=== PATIENT | male | born 1955 | race Caucasian/White ===

== ENCOUNTER 2019-05-29 04:39 | Inpatient (IN) | payer MEDICARE ==
[~2019-05-29] VITALS: Ht 188 cm; Wt 118.4 kg
[~2019-05-29 04:39] MED LIST: ALBU18HF2 IH; AMLO10TA80 MT; BACL-141 MT; CLON2TAB11 MT; COLL30OI TP; FURO-151 MT; Klonopin; LISI40TA4 MT; METH-611 MT; OXYC-662 MT; TAMS-11 MT
[2019-05-29] MEDS ORDERED: OXYCODONE HCL/ACETAMINOPHEN 5/325MG TABLET PO ONE (06:45)
[2019-05-29 13:12] LABS: BASOPHILS % 0.7 % (0.0-2.0); EOSINOPHILS % 0.4 % (0.0-5.0); HEMATOCRIT. 39.3 % (42.0-52.0); HEMOGLOBIN. 13.2 g/dL (14.0-18.0); LYMPHOCYTES % 21.8 % (20.0-50.0); MEAN CORPUSCULAR HEMOGLOBIN 28.4 pg (28.0-32.0); MEAN CORPUSCULAR VOLUME 84.7 fL (80.0-94.0); MEAN PLATELET VOLUME 9.5 fl (7.4-10.4); MONOCYTES % 10.7 % (2.0-8.0); NEUTROPHILS % 66.4 % (40.0-76.0); PLATELET 170 x1000/uL (130-400); RED BLOOD CELL COUNT 4.63 mill/uL (4.7-6.1); RED CELL DISTRIBUTION WIDTH 16.5 % (11.6-14.6)
[2019-05-29 13:19] LABS: CHLORIDE 97 mEq/L (98-107)
[2019-05-29] MEDS ORDERED: HYDRALAZINE 20MG/ML VIAL IV ONE (14:15)
[2019-05-29] MEDS ORDERED: NA PHOS,M-B/NA PHOS,DI-BA ENEMA 118ML PR PRN (15:00)
[2019-05-29] MEDS ORDERED: GUAIFENESIN 200MG/10ML SUGAR FREE UDC PO PRN (15:00)
[2019-05-29] MEDS ORDERED: ACETAMINOPHEN 325MG TABLET PO PRN (15:00)
[2019-05-29] MEDS ORDERED: CLONIDINE 0.1MG TABLET PO PRN (15:00)
[2019-05-29] MEDS ORDERED: ONDANSETRON HCL 4MG/2ML INJ IV PRN (15:00)
[2019-05-29] MEDS ORDERED: DIPHENHYDRAMINE 50MG/ML VIAL IV PRN (15:00)
[2019-05-29] MEDS ORDERED: DOCUSATE SODIUM 100MG CAPSULE PO PRN (15:00)
[2019-05-29] MEDS ORDERED: ALBUTEROL 6.7GM HFA INHALER INH SCH (15:15)
[2019-05-29 16:00] VITALS: BP 170/100
[2019-05-29] MEDS: ENOXAPARIN 30MG/0.3ML SYR SUBCUT SCH (18:00)
[2019-05-29] MEDS: CLONAZEPAM 1MG TABLET PO PRN (18:02)
[2019-05-29] MEDS: FUROSEMIDE 40MG TABLET PO SCH (18:03)
[2019-05-29] MEDS: AMLODIPINE 10MG TABLET PO SCH (18:04)
[2019-05-29 18:20] VITALS: BP 170/100
[2019-05-29] MEDS: BACLOFEN 10MG TABLET PO SCH (18:31)
[2019-05-29] MEDS: LISINOPRIL 40MG TABLET PO SCH (18:31)
[2019-05-29] MEDS: METHADONE HCL 10MG TABLET PO SCH (18:45)
[2019-05-29] MEDS ORDERED: ALBUTEROL (0.083%) 2.5MG/3ML NEB HHN PRN (18:45)
[2019-05-29 20:00] VITALS: BP 131/72
[2019-05-29] MEDS ORDERED: POTASSIUM CHLORIDE 20MEQ TABLET SR PO NR (21:00)
[2019-05-29] MEDS: TAMSULOSIN HCL 0.4MG SR CAPSULE PO SCH (21:46)
[2019-05-30] VITALS: BP 124/79
[2019-05-30 01:06] LABS: CREATINE KINASE 68 IU/L (39-308)
[2019-05-30] MEDS: LORAZEPAM 2MG/ML CPJ IV PRN ×3 (04:49→22:40)
[2019-05-30 05:00] VITALS: BP 141/69
[2019-05-30] MEDS: ENOXAPARIN 30MG/0.3ML SYR SUBCUT SCH ×2 (05:07→18:58)
[2019-05-30 06:19] LABS: *AMPHETAMINES SCREEN URINE NEGATIVE (NEGATIVE); *BARBITURATES SCREEN URINE NEGATIVE (NEGATIVE); CANNABINOID URINE SCREEN NEGATIVE (NEGATIVE); METHADONE URINE SCREEN PRESUMTIVE POSITIVE (NEGATIVE); OPIATES URINE SCREEN NEGATIVE (NEGATIVE); PHENCYCLIDINE URINE SCREEN NEGATIVE (NEGATIVE)
[2019-05-30 06:20] LABS: *COCAINE SCREEN URINE NEGATIVE (NEGATIVE)
[2019-05-30 06:23] LABS: *BENZODIAZEPINES SCREEN URINE NEGATIVE (NEGATIVE)
[2019-05-30 06:48] LABS: CLARITY URINE CLEAR (CLEAR); COLOR URINE YELLOW (YELLOW); KETONES URINE NEGATIVE (NEGATIVE); LEUKOCYTE ESTERASE URINE NEGATIVE (NEGATIVE); NITRITE URINE NEGATIVE (NEGATIVE); OCCULT BLOOD URINE NEGATIVE (NEGATIVE); PH URINE 6.5 (4.5-8.0); PROTEIN URINE NEGATIVE (NEGATIVE); SPECIFIC GRAVITY URINE 1.006 (1.005-1.030)
[2019-05-30 06:53] LABS: BASOPHILS % 0.4 % (0.0-2.0); EOSINOPHILS % 0.4 % (0.0-5.0); HEMATOCRIT. 38.4 % (42.0-52.0); HEMOGLOBIN. 12.7 g/dL (14.0-18.0); LYMPHOCYTES % 16.8 % (20.0-50.0); MEAN CORPUSCULAR HEMOGLOBIN 28.3 pg (28.0-32.0); MEAN CORPUSCULAR VOLUME 85.6 fL (80.0-94.0); MEAN PLATELET VOLUME 9.7 fl (7.4-10.4); MONOCYTES % 7.9 % (2.0-8.0); NEUTROPHILS % 74.5 % (40.0-76.0); PLATELET 147 x1000/uL (130-400); RED BLOOD CELL COUNT 4.49 mill/uL (4.7-6.1); RED CELL DISTRIBUTION WIDTH 16.1 % (11.6-14.6)
[2019-05-30 07:50] LABS: CHLORIDE 100 mEq/L (98-107)
[2019-05-30] MEDS: CLONAZEPAM 1MG TABLET PO PRN ×2 (07:57→20:40)
[2019-05-30] MEDS: AMLODIPINE 10MG TABLET PO SCH ×2 (07:59→20:41)
[2019-05-30] MEDS: LISINOPRIL 40MG TABLET PO SCH (07:59)
[2019-05-30 08:00] VITALS: BP 155/95
[2019-05-30] MEDS: FUROSEMIDE 40MG TABLET PO SCH (08:00)
[2019-05-30] MEDS: OXYCODONE HCL 5MG TABLET PO PRN (08:00)
[2019-05-30 08:01] LABS: LDL CHOLESTEROL 110 mg/dL (5-100)
[2019-05-30 08:02] LABS: CREATINE KINASE 58 IU/L (39-308); HDL CHOLESTEROL 46 mg/dL (40-59)
[2019-05-30 08:03] LABS: T4 FREE 1.41 ng/dL (0.76-1.46)
[2019-05-30] MEDS ORDERED: POTASSIUM CHLORIDE 20MEQ/PACKET PO NR (08:30)
[2019-05-30] MEDS: METHADONE HCL 10MG TABLET PO SCH ×4 (09:00→17:52)
[2019-05-30] MEDS: BACLOFEN 10MG TABLET PO SCH ×3 (09:18→17:52)
[2019-05-30 12:00] VITALS: BP 102/72
[2019-05-30 16:00] VITALS: BP 138/58
[2019-05-30 20:00] VITALS: BP 105/76
[2019-05-30] MEDS: TAMSULOSIN HCL 0.4MG SR CAPSULE PO SCH (20:41)
[2019-05-31] VITALS: BP 102/72
[2019-05-31] MEDS: OXYCODONE HCL 5MG TABLET PO PRN (00:49)
[2019-05-31 04:00] VITALS: BP 150/84
[2019-05-31] MEDS: ENOXAPARIN 30MG/0.3ML SYR SUBCUT SCH (06:26)
[2019-05-31 08:00] VITALS: BP 147/87
[2019-05-31] MEDS: LORAZEPAM 2MG/ML CPJ IV PRN (08:06)
[2019-05-31] MEDS: CLONAZEPAM 1MG TABLET PO PRN (08:41)
[2019-05-31] MEDS: BACLOFEN 10MG TABLET PO SCH (09:00)
[2019-05-31] MEDS: FUROSEMIDE 40MG TABLET PO SCH (09:03)
[2019-05-31] MEDS: METHADONE HCL 10MG TABLET PO SCH ×2 (09:03→12:14)
[2019-05-31] MEDS: AMLODIPINE 10MG TABLET PO SCH (09:04)
[2019-05-31] MEDS: LISINOPRIL 40MG TABLET PO SCH (09:04)
[2019-05-31] MEDS ORDERED: LORAZEPAM 2MG/ML CPJ IV NR (11:45)
[2019-05-31 12:00] VITALS: BP 147/87
[2019-05-31 12:14] VITALS: BP 147/87
[2019-05-31] MEDS ORDERED: ATORVASTATIN CALCIUM 10MG TABLET PO SCH (21:00)
== END 2019-05-31 12:50 | disposition home health service (06) | DRG 556 ==
LOC: ER 04:39 → 8WST 13:35 → EDBEDREQ 13:37 → ENRESERV 14:28 → SUPCPDRO 14:55
PROVIDERS: ADMIT Hospitalist; ATTEND Hospitalist
DX: M79.674 Pain in right toe(s) (principal); G93.40 Encephalopathy, unspecified; G89.4 Chronic pain syndrome; F41.9 Anxiety disorder, unspecified; N40.0 Benign prostatic hyperplasia without lower urinary tract symptoms; F17.200 Nicotine dependence, unspecified, uncomplicated; F31.9 Bipolar disorder, unspecified; F11.10 Opioid abuse, uncomplicated; I10 Essential (primary) hypertension; Z79.899 Other long term (current) drug therapy; M79.18 Myalgia, other site
CPT/HCPCS: 36415; 71045; 73620; 80061; 80305; 81003; 82550; 84439; 84443; 93005; 93970; 97162; 99285; J1650; J2060

== ENCOUNTER 2019-06-24 06:21 | Emergency (ER) | payer MEDICARE ==
[~2019-06-24] VITALS: Ht 188 cm; Wt 125.0 kg
[2019-06-24] MEDS ORDERED: HYDROCODONE/ACETAMINOPHEN 5/325MG TABLET PO ONE (07:00)
[2019-06-24 12:13] VITALS: BP 170/95
== END 2019-06-24 12:15 | disposition home or self-care (01) ==
LOC: ER 06:21
DX: L98.491 Non-pressure chronic ulcer of skin of other sites limited to breakdown of skin (principal); F41.9 Anxiety disorder, unspecified; F32.9 Major depressive disorder, single episode, unspecified; I10 Essential (primary) hypertension; F17.200 Nicotine dependence, unspecified, uncomplicated
CPT/HCPCS: 73620; 99283

== ENCOUNTER 2021-02-11 14:31 | Emergency (ER) | payer MEDICARE ==
[~2021-02-11] VITALS: Ht 185.4 cm; Wt 86.0 kg
[~2021-02-11 14:31] MED LIST changes: +LISI40TA13 MT; -LISI40TA4 MT
[2021-02-11] MEDS ORDERED: SODIUM CHLORIDE 0.9% 1,000 ML IV ONE (17:00)
[2021-02-11 17:17] LABS: BASOPHILS % 0.7 % (0.0-2.0); EOSINOPHILS % 0.4 % (0.0-5.0); HEMATOCRIT. 39.8 % (42.0-52.0); HEMOGLOBIN. 13.5 g/dL (14.0-18.0); MEAN CORPUSCULAR HEMOGLOBIN 28.6 pg (28.0-32.0); MEAN CORPUSCULAR VOLUME 84.1 fL (80.0-94.0); MEAN PLATELET VOLUME 9.7 fl (7.4-10.4); NEUTROPHILS % 66.9 % (40.0-76.0); PLATELET 226 x1000/uL (130-400); RED BLOOD CELL COUNT 4.73 mill/uL (4.7-6.1); RED CELL DISTRIBUTION WIDTH 15.3 % (11.6-14.6)
[2021-02-11 17:26] LABS: CHLORIDE 103 mEq/L (98-107)
[2021-02-11] MEDS ORDERED: POTASSIUM CHLORIDE 20MEQ TABLET SR PO ONE (18:15)
[2021-02-11 19:14] VITALS: BP 135/88
== END 2021-02-11 19:17 | disposition home or self-care (01) ==
LOC: ER 14:31
DX: R53.1 Weakness (principal); E87.6 Hypokalemia; I10 Essential (primary) hypertension; Z79.899 Other long term (current) drug therapy
CPT/HCPCS: 36415; 70450; 71045; 80053; 84484; 85025; 93005; 99284; J7030

== ENCOUNTER 2021-05-09 09:07 | Inpatient (IN) | payer MEDICARE, OTHER ==
[~2021-05-09] VITALS: Ht 185.4 cm; Wt 97.2 kg
[2021-05-09] MEDS ORDERED: MORPHINE SULFATE 4 MG/ML CPJ (NOT FOR IM USE) IV STA (09:15)
[2021-05-09] MEDS ORDERED: ONDANSETRON HCL 4MG/2ML INJ IV STA (09:15)
[2021-05-09] MEDS ORDERED: LABETALOL 5MG/ML SYR 20 MG/4 ML SYRINGE IV ONE ×2 (09:30→12:00)
[2021-05-09] MEDS ORDERED: FUROSEMIDE 20MG/2ML VIAL IVP ONE (09:30)
[2021-05-09 09:48] LABS: HEMATOCRIT. 37.9 % (42.0-52.0); HEMOGLOBIN. 13.1 g/dL (14.0-18.0); MEAN CORPUSCULAR HEMOGLOBIN 29.1 pg (28.0-32.0); MEAN CORPUSCULAR VOLUME 84.5 fL (80.0-94.0); MEAN PLATELET VOLUME 8.9 fl (7.4-10.4); PLATELET 147 x1000/uL (130-400); RED BLOOD CELL COUNT 4.49 mill/uL (4.7-6.1); RED CELL DISTRIBUTION WIDTH 15.2 % (11.6-14.6)
[2021-05-09 09:58] LABS: CHLORIDE 98 mEq/L (98-107)
[2021-05-09 10:00] LABS: INR 1.1; PROTHROMBIN TIME 11.4 sec (9.6-11.0)
[2021-05-09 10:06] LABS: CREATINE KINASE 150 IU/L (39-308)
[2021-05-09 10:11] LABS: CLARITY URINE CLEAR (CLEAR); COLOR URINE YELLOW (YELLOW); KETONES URINE NEGATIVE (NEGATIVE); LEUKOCYTE ESTERASE URINE NEGATIVE (NEGATIVE); NITRITE URINE NEGATIVE (NEGATIVE); OCCULT BLOOD URINE TRACE (NEGATIVE); PH URINE 7.5 (4.5-8.0); PROTEIN URINE TRACE (NEGATIVE); UROBILINOGEN URINE 0.2 E.U./dL (0.2-1.0)
[2021-05-09 10:34] LABS: PLATELET ESTIMATE NORMAL
[2021-05-09] MEDS ORDERED: HYDROCODONE/ACETAMINOPHEN 5/325MG TABLET PO ONE (12:00)
[2021-05-09] MEDS ORDERED: GUAIFENESIN 200MG/10ML SUGAR FREE UDC PO PRN (13:30)
[2021-05-09] MEDS ORDERED: ACETAMINOPHEN 650MG SUPP PR PRN (13:30)
[2021-05-09] MEDS ORDERED: MAGNESIUM/ALUMINUM HYDROXIDE/SIMETHICONE 30ML UDC PO PRN (13:30)
[2021-05-09] MEDS ORDERED: SODIUM CHLORIDE 0.9% 1,000 ML IV SCH (13:30)
[2021-05-09] MEDS ORDERED: ONDANSETRON HCL 4MG/2ML INJ IV PRN (13:30)
[2021-05-09] MEDS ORDERED: IPRATROPIUM/ALBUTEROL 0.5-3(2.5)MG/3ML NEB NEB PRN (13:30)
[2021-05-09] MEDS ORDERED: NA PHOS,M-B/NA PHOS,DI-BA ENEMA 118ML PR PRN (13:30)
[2021-05-09] MEDS ORDERED: NALOXONE HCL 0.4MG/ML VIAL IV PRN (13:45)
[2021-05-09] MEDS: ENOXAPARIN 40MG/0.4ML SYR SUBCUT SCH (15:11)
[2021-05-09] MEDS: HYDROCODONE/ACETAMINOPHEN 5/325MG TABLET PO PRN ×2 (15:12→21:54)
[2021-05-09] MEDS: AMLODIPINE 5MG TABLET PO SCH (15:12)
[2021-05-09] MEDS: LORAZEPAM 0.5MG TABLET PO PRN (18:04)
[2021-05-09] MEDS: MORPHINE SULFATE 2 MG/ML CPJ (NOT FOR IM USE) IV PRN ×2 (18:04→23:05)
[2021-05-09 18:15] LABS: CREATINE KINASE 111 IU/L (39-308)
[2021-05-09 18:16] LABS: CREATINE KINASE MB FRACTION 2.8 ng/mL (0.5-3.6)
[2021-05-09 21:50] VITALS: BP 146/99
[2021-05-09] MEDS: FAMOTIDINE 20MG TABLET PO SCH (21:53)
[2021-05-09 23:00] VITALS: BP 146/99
[2021-05-09 23:28] LABS: CREATINE KINASE 126 IU/L (39-308)
[2021-05-09 23:29] LABS: CREATINE KINASE MB FRACTION 3.8 ng/mL (0.5-3.6)
[2021-05-10] VITALS: BP 124/73
[2021-05-10 04:00] VITALS: BP 164/98
[2021-05-10] MEDS: CLONIDINE 0.1MG TABLET PO PRN ×2 (06:08→20:11)
[2021-05-10 06:53] VITALS: BP 148/79
[2021-05-10 07:04] LABS: CHLORIDE 102 mEq/L (98-107)
[2021-05-10 07:14] LABS: LDL CHOLESTEROL 63 mg/dL (5-100); T4 FREE 1.59 ng/dL (0.76-1.46)
[2021-05-10 07:16] LABS: HDL CHOLESTEROL 42 mg/dL (40-59)
[2021-05-10] MEDS: LORAZEPAM 0.5MG TABLET PO PRN ×3 (07:16→17:59)
[2021-05-10 07:33] LABS: BASOPHILS % 1.1 % (0.0-2.0); EOSINOPHILS % 3.5 % (0.0-5.0); HEMATOCRIT. 35.9 % (42.0-52.0); HEMOGLOBIN. 12.1 g/dL (14.0-18.0); LYMPHOCYTES % 17.2 % (20.0-50.0); MEAN CORPUSCULAR HEMOGLOBIN 28.7 pg (28.0-32.0); MEAN CORPUSCULAR VOLUME 85.5 fL (80.0-94.0); MONOCYTES % 8.4 % (2.0-8.0); NEUTROPHILS % 69.8 % (40.0-76.0); RED CELL DISTRIBUTION WIDTH 15.4 % (11.6-14.6)
[2021-05-10] MEDS: AMLODIPINE 5MG TABLET PO SCH (08:20)
[2021-05-10] MEDS: HYDROCODONE/ACETAMINOPHEN 5/325MG TABLET PO PRN ×3 (08:20→20:07)
[2021-05-10 08:30] VITALS: BP 170/96
[2021-05-10] MEDS ORDERED: PNEUMOCOCCAL 23-VAL P-SAC VAC 0.5 ML IM ONE (10:00)
[2021-05-10] MEDS: MORPHINE SULFATE 2 MG/ML CPJ (NOT FOR IM USE) IV PRN ×3 (10:56→22:08)
[2021-05-10 11:23] LABS: PLATELET 128 x1000/uL (130-400)
[2021-05-10 12:14] VITALS: BP 139/87
[2021-05-10 16:06] VITALS: BP 145/96
[2021-05-10] MEDS: ENOXAPARIN 40MG/0.4ML SYR SUBCUT SCH (16:24)
[2021-05-10 17:19] LABS: *BENZODIAZEPINES SCREEN URINE NEGATIVE (NEGATIVE); *COCAINE SCREEN URINE NEGATIVE (NEGATIVE); METHADONE URINE SCREEN PRESUMTIVE POSITIVE (NEGATIVE); OPIATES URINE SCREEN PRESUMTIVE POSITIVE (NEGATIVE); PHENCYCLIDINE URINE SCREEN NEGATIVE (NEGATIVE)
[2021-05-10 17:20] LABS: *AMPHETAMINES SCREEN URINE NEGATIVE (NEGATIVE); *BARBITURATES SCREEN URINE NEGATIVE (NEGATIVE); CANNABINOID URINE SCREEN PRESUMTIVE POSITIVE (NEGATIVE)
[2021-05-10] MEDS: FAMOTIDINE 20MG TABLET PO SCH (20:11)
[2021-05-11] VITALS: BP 144/74
[2021-05-11] MEDS: MORPHINE SULFATE 2 MG/ML CPJ (NOT FOR IM USE) IV PRN ×4 (02:14→20:15)
[2021-05-11 04:00] VITALS: BP 156/90
[2021-05-11] MEDS ORDERED: BUPIVACAINE HCL/PF 0.5% (5MG/ML) 10ML ONE (07:07)
[2021-05-11] MEDS ORDERED: LIDOCAINE HCL/EPINEPHRINE 1%-EPI 1:100,000 20 ML VIAL ONE (07:07)
[2021-05-11] MEDS ORDERED: POLYMYXIN B SULFATE 500000 UNITS/VIAL ONE (07:08)
[2021-05-11] MEDS ORDERED: ROPIVACAINE HCL 10MG/ML 20 ML VIAL EPI ONE (07:08)
[2021-05-11] MEDS ORDERED: VANCOMYCIN HCL 1 GM/VIAL ONE (07:08)
[2021-05-11 07:26] LABS: BASOPHILS % 0.6 % (0.0-2.0); EOSINOPHILS % 5.2 % (0.0-5.0); HEMATOCRIT. 34.4 % (42.0-52.0); HEMOGLOBIN. 11.4 g/dL (14.0-18.0); LYMPHOCYTES % 22.1 % (20.0-50.0); MEAN CORPUSCULAR HEMOGLOBIN 28.3 pg (28.0-32.0); MEAN CORPUSCULAR VOLUME 85.1 fL (80.0-94.0); MEAN PLATELET VOLUME 10.5 fl (7.4-10.4); MONOCYTES % 11.6 % (2.0-8.0); NEUTROPHILS % 60.5 % (40.0-76.0); PLATELET 169 x1000/uL (130-400); RED BLOOD CELL COUNT 4.04 mill/uL (4.7-6.1); RED CELL DISTRIBUTION WIDTH 15.1 % (11.6-14.6)
[2021-05-11 07:33] LABS: CHLORIDE 101 mEq/L (98-107)
[2021-05-11] MEDS ORDERED: MORPHINE SULFATE/PF 1MG/ML 10ML AMP ONE (07:46)
[2021-05-11] MEDS ORDERED: CEFAZOLIN SODIUM 1000MG/VIAL ONE (08:02)
[2021-05-11] MEDS ORDERED: DEXAMETHASONE 4MG/ML 1ML VIAL ONE (08:02)
[2021-05-11] MEDS ORDERED: METOPROLOL TARTRATE 5MG/5ML VIAL IV ONE (08:35)
[2021-05-11] MEDS ORDERED: HYDRALAZINE 20MG/ML VIAL ONE (08:39)
[2021-05-11] MEDS ORDERED: MEPERIDINE HCL/PF 25MG/ML CPJ IV PRN (08:45)
[2021-05-11] MEDS ORDERED: ONDANSETRON HCL 4MG/2ML INJ IV PRN (08:45)
[2021-05-11] MEDS ORDERED: LABETALOL 5MG/ML SYR 20 MG/4 ML SYRINGE IV PRN (08:45)
[2021-05-11] MEDS: HYDROMORPHONE HCL/PF 2MG/ML CPJ IV PRN ×6 (09:10→09:51)
[2021-05-11] MEDS ORDERED: KETOROLAC 30MG/ML VIAL IV STA (09:17)
[2021-05-11] MEDS: AMLODIPINE 5MG TABLET PO SCH (10:36)
[2021-05-11] MEDS: LORAZEPAM 0.5MG TABLET PO PRN (10:36)
[2021-05-11 12:00] VITALS: BP 121/78
[2021-05-11] MEDS: HYDROCODONE/ACETAMINOPHEN 5/325MG TABLET PO PRN ×2 (14:23→17:55)
[2021-05-11] MEDS: CEFAZOLIN 2,000 MG in DEXT 5% WATER 100 ML IV SCH ×2 (14:23→21:56)
[2021-05-11] MEDS: ENOXAPARIN 40MG/0.4ML SYR SUBCUT SCH (14:24)
[2021-05-11 16:00] VITALS: BP 129/83
[2021-05-11] MEDS: DOCUSATE SODIUM 100MG CAPSULE PO PRN (17:55)
[2021-05-11 20:00] VITALS: BP 158/98
[2021-05-11] MEDS: FAMOTIDINE 20MG TABLET PO SCH (20:14)
[2021-05-12] VITALS: BP 164/94
[2021-05-12] MEDS: MORPHINE SULFATE 2 MG/ML CPJ (NOT FOR IM USE) IV PRN ×5 (00:11→20:06)
[2021-05-12] MEDS: CLONIDINE 0.1MG TABLET PO PRN (00:12)
[2021-05-12 04:00] VITALS: BP 164/97
[2021-05-12] MEDS: CEFAZOLIN 2,000 MG in DEXT 5% WATER 100 ML IV SCH ×3 (05:38→22:00)
[2021-05-12 05:56] LABS: HEMATOCRIT. 32.8 % (42.0-52.0); HEMOGLOBIN. 11.1 g/dL (14.0-18.0); LYMPHOCYTES % 8.3 % (20.0-50.0); MEAN CORPUSCULAR HEMOGLOBIN 28.6 pg (28.0-32.0); MEAN CORPUSCULAR VOLUME 84.5 fL (80.0-94.0); MEAN PLATELET VOLUME 9.9 fl (7.4-10.4); MONOCYTES % 7.8 % (2.0-8.0); NEUTROPHILS % 83.9 % (40.0-76.0); PLATELET 186 x1000/uL (130-400); RED BLOOD CELL COUNT 3.89 mill/uL (4.7-6.1); RED CELL DISTRIBUTION WIDTH 15.2 % (11.6-14.6)
[2021-05-12 06:18] LABS: CHLORIDE 100 mEq/L (98-107)
[2021-05-12 08:00] VITALS: BP 167/91
[2021-05-12] MEDS: AMLODIPINE 5MG TABLET PO SCH (08:38)
[2021-05-12] MEDS: DOCUSATE SODIUM 100MG CAPSULE PO PRN (08:55)
[2021-05-12] MEDS: LORAZEPAM 0.5MG TABLET PO PRN ×3 (10:38→22:00)
[2021-05-12 12:00] VITALS: BP 140/93
[2021-05-12 16:00] VITALS: BP 154/87
[2021-05-12] MEDS: ENOXAPARIN 40MG/0.4ML SYR SUBCUT SCH (16:13)
[2021-05-12] MEDS: ACETAMINOPHEN 325MG TABLET PO PRN (18:00)
[2021-05-12 20:00] VITALS: BP 143/90
[2021-05-12] MEDS: FAMOTIDINE 20MG TABLET PO SCH (20:05)
[2021-05-12] MEDS: HYDROCODONE/ACETAMINOPHEN 5/325MG TABLET PO PRN (22:00)
[2021-05-13] VITALS: BP 160/86
[2021-05-13] MEDS: MORPHINE SULFATE 2 MG/ML CPJ (NOT FOR IM USE) IV PRN ×5 (00:07→20:16)
[2021-05-13 04:00] VITALS: BP 166/93
[2021-05-13] MEDS: CEFAZOLIN 2,000 MG in DEXT 5% WATER 100 ML IV SCH ×2 (06:18→13:15)
[2021-05-13 08:00] VITALS: BP 174/93
[2021-05-13] MEDS: AMLODIPINE 5MG TABLET PO SCH (08:57)
[2021-05-13] MEDS: CLONIDINE 0.1MG TABLET PO PRN (08:57)
[2021-05-13 12:00] VITALS: BP 164/89
[2021-05-13] MEDS ORDERED: IOHEXOL-350 100 ML BOTTLE ONE (12:26)
[2021-05-13] MEDS: HYDROCODONE/ACETAMINOPHEN 5/325MG TABLET PO PRN ×2 (13:15→18:08)
[2021-05-13] MEDS: ENOXAPARIN 40MG/0.4ML SYR SUBCUT SCH (13:16)
[2021-05-13] MEDS ORDERED: AMLODIPINE 5MG TABLET PO NR (14:30)
[2021-05-13 16:00] VITALS: BP 155/94
[2021-05-13 16:28] LABS: BASOPHILS % 0.4 % (0.0-2.0); EOSINOPHILS % 2.2 % (0.0-5.0); HEMATOCRIT. 32.6 % (42.0-52.0); HEMOGLOBIN. 11.3 g/dL (14.0-18.0); LYMPHOCYTES % 22.3 % (20.0-50.0); MEAN CORPUSCULAR HEMOGLOBIN 29.2 pg (28.0-32.0); MEAN CORPUSCULAR VOLUME 84.5 fL (80.0-94.0); MEAN PLATELET VOLUME 9.7 fl (7.4-10.4); MONOCYTES % 9.9 % (2.0-8.0); NEUTROPHILS % 65.2 % (40.0-76.0); PLATELET 206 x1000/uL (130-400); RED BLOOD CELL COUNT 3.86 mill/uL (4.7-6.1); RED CELL DISTRIBUTION WIDTH 15.1 % (11.6-14.6)
[2021-05-13 16:47] LABS: CHLORIDE 101 mEq/L (98-107)
[2021-05-13 20:00] VITALS: BP 135/96
[2021-05-13] MEDS: LORAZEPAM 0.5MG TABLET PO PRN (20:08)
[2021-05-13] MEDS: DIPHENHYDRAMINE 50MG/ML VIAL IV PRN (20:08)
[2021-05-13] MEDS: FAMOTIDINE 20MG TABLET PO SCH (20:08)
[2021-05-13] MEDS: ENOXAPARIN 100MG/ML SYR SUBCUT SCH (20:09)
[2021-05-14] VITALS: BP 130/100
[2021-05-14] MEDS: MORPHINE SULFATE 2 MG/ML CPJ (NOT FOR IM USE) IV PRN ×4 (00:01→13:05)
[2021-05-14] MEDS: DIPHENHYDRAMINE 50MG/ML VIAL IV PRN ×5 (00:12→17:31)
[2021-05-14] MEDS: LORAZEPAM 0.5MG TABLET PO PRN ×4 (00:50→13:01)
[2021-05-14 04:00] VITALS: BP 169/90
[2021-05-14] MEDS: CLONIDINE 0.1MG TABLET PO PRN (04:47)
[2021-05-14 07:37] LABS: CHLORIDE 102 mEq/L (98-107)
[2021-05-14 07:40] LABS: BASOPHILS % 0.7 % (0.0-2.0); EOSINOPHILS % 5.4 % (0.0-5.0); HEMATOCRIT. 33.9 % (42.0-52.0); HEMOGLOBIN. 11.4 g/dL (14.0-18.0); LYMPHOCYTES % 28.1 % (20.0-50.0); MEAN CORPUSCULAR HEMOGLOBIN 28.6 pg (28.0-32.0); MEAN CORPUSCULAR VOLUME 84.9 fL (80.0-94.0); MEAN PLATELET VOLUME 9.6 fl (7.4-10.4); MONOCYTES % 10.5 % (2.0-8.0); NEUTROPHILS % 55.3 % (40.0-76.0); PLATELET 216 x1000/uL (130-400); RED BLOOD CELL COUNT 3.99 mill/uL (4.7-6.1); RED CELL DISTRIBUTION WIDTH 15.6 % (11.6-14.6)
[2021-05-14 08:00] VITALS: BP 158/87
[2021-05-14] MEDS ORDERED: AMLODIPINE 10MG TABLET PO SCH (09:00)
[2021-05-14] MEDS: ENOXAPARIN 100MG/ML SYR SUBCUT SCH (09:03)
[2021-05-14 12:00] VITALS: BP 140/90
[2021-05-14] MEDS: ACETAMINOPHEN 325MG TABLET PO PRN (15:39)
[2021-05-14 16:00] VITALS: BP 152/88
[2021-05-14 18:30] VITALS: BP 140/90
== END 2021-05-14 18:40 | DRG 481 ==
LOC: ER 09:10 → SUPCPDRO 15:12 → ENRESERV 19:56 → 8WST 20:56
PROVIDERS: ADMIT Internal Medicine; ATTEND Internal Medicine
PROC: 0QS604Z Reposition Right Upper Femur with Internal Fixation Device, Open Approach (ICD-10-PCS; principal; 2021-05-11)
DX: S72.144A Nondisplaced intertrochanteric fracture of right femur, initial encounter for closed fracture (principal); E87.1 Hypo-osmolality and hyponatremia; J44.9 Chronic obstructive pulmonary disease, unspecified; D64.9 Anemia, unspecified; F17.210 Nicotine dependence, cigarettes, uncomplicated; F41.9 Anxiety disorder, unspecified; I16.0 Hypertensive urgency; R73.9 Hyperglycemia, unspecified; I10 Essential (primary) hypertension; F32.9 Major depressive disorder, single episode, unspecified; Z20.822 Contact with and (suspected) exposure to COVID-19; Z79.899 Other long term (current) drug therapy; Z82.49 Family history of ischemic heart disease and other diseases of the circulatory system; W18.39XA Other fall on same level, initial encounter; Y93.89 Activity, other specified; Y92.89 Other specified places as the place of occurrence of the external cause; Y99.8 Other external cause status
CPT/HCPCS: 36415; 71045; 71275; 72100; 73503; 73521; 74176; 76000; 80048; 80053; 80061; 80305; 81003; 82550; 82553; 83880; 84439; 84443; 84484; 85025; 86850; 86900; 87426; 90732; 93005; 93306; 93970; 97110; 97116; 97162; 97530; 99291; C1713; J0360; J0690; J1100; J1170; J1200; J1650; J1885; J1940; J2270; J2274; J2405; J2795; J3370; J3490; J7060; Q9967; A4315